=== PATIENT | male | born 1970 | race American Indian/Alaskan Native ===

== ENCOUNTER 2016-11-02 12:20 | Inpatient (IN) | payer MEDICARE ==
--- NOTE | 2016-11-02 15:59 | Admit Criteria Form ---
Admission Criteria Documentation: NEUROLOGY GRG Clinical Indications for Admission to Inpatient Care (Place ' X' for any and all applicable criteria): Hospital admission is needed for appropriate care of the patient because of ANY ONE of the following: [ ]I. New-onset or worsening altered mental status remaining after emergency or observation level care (as appropriate) (9)(10)(11) [ ]II. Severe ORTHOPAEDIC PHYSICIAN ASSISTANT infections or inflammatory conditions, including ANY ONE of the following(1)(2)(3): [ ]a) Intracranial abscess [ ]b) Spinal abscess or myelitis [ ]c) Tuberculous or other nonbacterial, nonviral ORTHOPAEDIC PHYSICIAN ASSISTANT infection(8) [ ]III. Encephalitis(1)(2)(3) [ ]IV. Status epilepticus or repetitive seizures not controlled with emergent treatment [A] (7)(8) [ ]V. Transient alteration in consciousness with high-risk etiology; examples include (12)(13): [ ]a) Cardiovascular source [ ]b) Cataplexy [ ]. Cerebral aneurysm requiring ANY ONE of the following(14): [ ]a) IV antihypertensives or vasoactive agents [ ]b) Sedation and analgesia for suspected leak [ ]c) Need for external ventricular drainage and cerebral perfusion pressure monitoring [ ]d) Emergent evaluation to determine need for surgical clipping or endovascular coiling by interventional radiology. If surgery is required ( Also use Craniotomy, Supratentorial, for Surgery of Bleeding Intracranial Aneurysm (for bleeding aneurysm) or Craniotomy, Supratentorial (for nonbleeding aneurysm) as appropriate. [ ]VII. Altered mental status that is severe or persistent(16) [ ]VIII New-onset severe neurologic findings requiring inpatient care; examples include: [ ]a) Papilledema [ ]b) Cerebral edema [ ]c) Mass effect on imaging [ ]IX. New-onset severe neurologic symptom requiring inpatient care indicated by ANY ONE of the following: [ ]a) Aphasia(15) [ ]b) Weakness (grade 3 or less) [ ]c) Paralysis (eg, hemiplegia) [ ]d) Spasticity(16) [ ]e) Ataxia(17) [ ]f) Amnesia(18) [ ]g) Involuntary movements(19) [ ]h) Vertigo [ ]i) Other severe neurologic symptom not treatable at alternative level of care (eg, observation care) [ ]X. Guillain-Gowrie syndrome(20) [ ]XI. Myasthenia gravis crisis or inpatient monitoring need as indicated by ANY ONE of the following(21): [ ]a) Inadequate airway protection [ ]b) Respiratory insufficiency requiring intubation or inpatient. monitoring [ ]c) Progressive dysphagia with failure to thrive [ ]d) Intensive treatment (eg, course of plasmapheresis) with inadequate outpatient situation to monitor patients status [X ]XII. Multiple sclerosis or other acute demyelinating disease requiring inpatient care as indicated by ANY ONE of the following (22)(23): [X ]a) Acute severe deterioration requiring inpatient treatment (eg, IV steroids, plasmapheresis, close observation) [ ]b) Acute complication requiring inpatient care (eg, sepsis, severe decubitus, aspiration) [ ]XIII. Intracranial hypertension (eg, pseudotumor cerebri) requiring inpatient care (eg, acute visual loss, inadequate oral intake) (24) [ ]XIV.Parkinson disease requiring inpatient care (Also use Optimal Recovery Care Criteria or General Recovery Criteria as appropriate) indicated by ANY ONE of the following(25): [ ]a) Infection (eg, aspiration pneumonia) not treatable at alternative level of care [ ]b) Volume depletion not responsive to emergency and observation care treatment (as appropriate) [ ]c) Life-threatening agitation or psychotic behavior not treatable on emergency, observation care, or alternative level (eg, residential) basis [ ]d) Severe medication withdrawal effects (eg, freezing, neuroleptic malignant syndrome) not responsive to emergency and observation care treatment (as appropriate) [ ]e) Other severe manifestation not treatable at alternative level of care [ ]XV.Amyotrophic lateral sclerosis with inpatient care needs as indicated by ANY ONE of the following(26): [ ]a) Acute complications requiring inpatient care (Use Optimal Recovery Care Criteria or General Recovery Criteria as appropriate); examples include: [ ]i) Aspiration pneumonia [ ]ii) Sepsis [ ]b) Dehydration or hypovolemia (not responsive to emergency and observation care treatment as appropriate) AND artificial support desired [ ]c) Inadequate airway protection AND artificial support desired [ ]d) Severe ventilatory insufficiency AND artificial support desired [ ]XVI.Severe myopathy, neuropathy, or other neuromuscular disease as indicated by ANY ONE of the following: [ ]a) New-onset severe diffuse weakness (eg, strength 3/5 or less) [ ]b) Severe dysphagia [ ]c) Dyspnea at rest or with minimal exertion (new) [ ]d) Inadequate airway protection [ ]e) Inadequate ventilation as indicated by ANY ONE of the following : [ ]i) Partial pressure of carbon dioxide greater than 44 mm Hg (5.9 kPa) (new) [ ]ii) Reduced peak expiratory flow rate (new) [ ]iii) Vital capacity less than 50% of predicted ( less than 15 mL/kg) [ ]iv) Peak inspiratory force less negative than -30 cm H20 (-2942 Pa) [ ]XVII.Complications of congenital or degenerative disease (eg, infection, seizures, dehydration, injury) not responsive to emergency and observation care treatment (as appropriate ) [C](16)(29)(30) [ ]XVIII.Suspected or confirmed nerve or muscle toxic injury, including ANY ONE of the following: [ ]a) Rhabdomyolysis(31) [ ]b) Botulism(32) [ ]c) Other severe toxin-induced sign or symptom [ ]XIX. Neurologic trauma requiring inpatient treatment (medical) indicated by ANY ONE of the following(33)(34): [ ]a) Vital signs or neurologic signs more frequently than every 4 hours [ ]b) Hyperosmolar therapy [ ]c) Respiratory monitoring [ ]d) Intracranial pressure monitoring and treatment [ ]e) Stabilization and immobilization device placement (eg, braces, body jacket) [ ]f) Intubation & mechanical ventilation for airway protection or therapeutic hyperventilation [ ]g) Other treatment or monitoring needed that requires inpatient level of care [ ]XX.Complications of neurologic devices (eg, ventricular shunt, neurostimulator) requiring ANY ONE of the following(35)(36): [ ]a) IV antibiotics with monitoring while awaiting culture results [ ]b) Monitoring for hydrocephalus [ ]XXI Vasculitis with ANY ONE of the following(4)(5): [ ]a) Altered mental status [ ]b) Psychosis [ ]c) Seizures [ ]XXII. Neurology condition and ALL of the following: [ ]a) Symptom or finding for which emergency and observation care have failed or are not considered appropriate (Use General Criteria: Observation Care as appropriate) [ ]b) Presence of ANY ONE of the following: [ ]i) A General Admission Criteria [ ]ii A Pediatric General Admission Criteria The original [facility] content created by [facility] has been revised. The portions of the content which have been revised are identified through the use of italic text or in bold, and [facility] has neither reviewed nor approved the modified material. All other unmodified content is copyright [facility] Please see references footnoted in the original [facility] edition 2016 Admission Criteria Met: Yes
--- NOTE | 2016-11-02 18:29 | History and Physical Report ---
CHIEF COMPLAINT: Weakness in both the legs. HISTORY OF PRESENT ILLNESS: A 46-year-old with history of multiple sclerosis for the past 10-15 years, now comes in for increasing weakness in both the lower extremities. Also, painful. Has difficulty walking. Feels the weakness is like 4/5 in both the lower extremities. No urinary incontinence. The patient follows with Yen Bhardwaj, neurologist. The patient is also on Gilenya 0.5 mg by mouth daily. No fever, no chills. No urinary incontinence. No bowel incontinence. PAST MEDICAL HISTORY: Significant for multiple sclerosis and low back pain. PAST SURGICAL HISTORY: None. SOCIAL HISTORY: Single, disabled. . Does not drink alcohol. Is a smoker. Is not exposed to HIV. FAMILY HISTORY: Significant for hypertension. REVIEW OF SYSTEMS: Other than lower weakness, 14-point review of systems essentially negative. Unable to walk. Walking with great help. No cough, no sore throat. CONSTITUTIONAL: No weight loss, no weight gain. HEENT: No sore throat. No postnasal drip. CARDIOVASCULAR AND RESPIRATORY: No shortness of breath. No chest pain. No palpitations. GASTROINTESTINAL: No nausea, no vomiting, no diarrhea. MUSCULOSKELETAL: Feels weak in both the lower extremities, especially in the thigh region. SKIN: No rashes. PHYSICAL EXAMINATION GENERAL: Young male, cooperative during examination. VITAL SIGNS: Blood pressure is 136/76, respirations are 16, temperature 98, pulse 70. Weight is about 145. HEENT: Unremarkable. Pupils equal and reactive. NECK: Supple. No lymphadenopathy, no thyromegaly. LUNGS: Clear to auscultation and percussion. Good air entry. CARDIOVASCULAR: S1, S2 heard. No gallop, no murmur, no rub. Apical impulse in left fifth intercostal space and midclavicular line. ABDOMEN: Soft and benign. No hepatosplenomegaly. No guarding, no rigidity. Hernial orifices are normal. EXTREMITIES: Good pedal pulses. No pedal edema. CENTRAL NERVOUS SYSTEM: Alert and oriented x 4. Nonfocal exam. The patient has weakness in both lower extremities, especially proximal muscles, 4/5 power. SKIN: Normal. LABORATORY DATA: Pending. The patient just admitted as a direct admission. ASSESSMENT AND PLAN: 1. Multiple sclerosis exacerbation. The patient will be admitted for IV Levaquin, IV Solu-Medrol 1000 mg IV q. 12. 2. Nutrition. Continue regular diet. Dietitian consult requested. 3. Lower back pain. Renick as necessary. 4. the patient on IV heparin for possible cancer in the stomach. 5. Deep venous thrombosis prophylaxis, Lovenox 40 mg subcutaneous daily. JOB# [id number] FERNANDO/NTS
[2016-11-02 18:41] LABS: Hematocrit 41.5 % (35.5-45.6); Hemoglobin 13.3 gm/dl (11.8-15.2); Mean Corpuscular HGB Conc 32 % (32-34); Mean Corpuscular Hemoglobin 27 pg (28-32); Mean Corpuscular Volume 86 fl (84-94); Platelet Count 299 K/mm3 (140-440); Red Blood Count 4.85 M/mm3 (3.65-5.03); Red Cell Distribution Width 14.6 % (13.2-15.2); White Blood Count 2.4 K/mm3 (4.5-11.0)
[2016-11-02 18:54] LABS: BUN/Creatinine Ratio 11.11; Blood Urea Nitrogen 10 mg/dL (9-20); Carbon Dioxide 26 mmol/L (22-30); Chloride 101.3 mmol/L (98-107); Glucose 102 mg/dL (75-100); Potassium 3.5 mmol/L (3.6-5.0); Sodium 141 mmol/L (137-145)
[2016-11-02 18:57] LABS: Anion Gap 17 mmol/L
--- NOTE | 2016-11-02 19:46 | Event Note ---
Date: 11/02/16 See H/p in reports MS exacerbation Low back pain
[2016-11-02] MEDS ORDERED: TRAMADOL HCL 50 MG PO SCH (20:00)
[2016-11-02 20:06] LABS: Basophils % (Manual) 0 % (0.0-1.8); Blastocytes % (Manual) 0 %
[2016-11-02 20:07] LABS: Anisocytosis Few; Diff Status Complete
[2016-11-02] MEDS: NORCO 10/325 PO SCH (21:00)
[2016-11-02] MEDS: LOVENOX SUB-Q SCH (21:00)
--- NOTE | 2016-11-02 21:12 | History and Physical Report ---
CHIEF COMPLAINT: Increasing weakness in both the lower extremities. HISTORY OF PRESENT ILLNESS: The patient is a 46-year-old -[place] male with history of multiple sclerosis, who was able to walk normally, comes into the office for increasing weakness in the both lower extremities and difficulty walking. Has to walk with a cane. Occasionally giving up and falling down. Hence, a direct admission to the hospital from exacerbation of multiple sclerosis. Weakness in both lower extremities. No weakness in the upper extremities. No diplopia. No cranial nerves symptoms. No urinary incontinence. PAST MEDICAL HISTORY: Significant for low back pain and multiple sclerosis. FAMILY HISTORY: No family health problems. SOCIAL HISTORY: Does not smoke. No alcohol, no recreational drugs. CURRENT MEDICATIONS: Gilenya 0.5 mg p.o. daily, Lyrica 75 mg p.o. b.i.d., [place] 10/325 twice a day, and Neurontin 100 mg 3 times a day. REVIEW OF SYSTEMS: CONSTITUTIONAL: No weight loss. No fever, no chills. HEENT: No sore throat. No postnasal drip. No diplopia. NECK: No neck stiffness. No neck pain. RESPIRATORY SYSTEM: No shortness of breath. CARDIOVASCULAR: No chest pain, no palpitations. GASTROINTESTINAL: No nausea, no vomiting, no diarrhea. GENITOURINARY: No dysuria. No flank pain. MUSCULOSKELETAL: Has weakness in both lower extremities. CENTRAL NERVOUS SYSTEM: Weakness in both lower extremities. SKIN: No rashes. A 14-point review of systems done otherwise negative. PHYSICAL EXAMINATION: GENERAL: Middle aged male, cooperative during examination. VITAL SIGNS: Blood pressure is 142/86, temperature is 98.7, pulse is ____, respirations are 18. HEENT: Unremarkable. Pupils equal and reactive. NECK: Supple, no lymphadenopathy, no thyromegaly. LUNGS: Clear to auscultation and percussion. Good air entry. CARDIOVASCULAR: S1, S2 heard. No gallop, no murmur, no rub. Apical impulse in left fifth intercostal space in midclavicular line. ABDOMEN: Soft and benign. No hepatosplenomegaly. No guarding, no rigidity. Hernial orifices are normal. EXTREMITIES: 3+ power in the both lower extremities. Reflexes are decreased. SKIN: Normal. GAIT: Able to walk with the help of a cane. LABORATORY DATA: Significant for white count of 2400, H and H of 13.3 and 41.5, platelet count of 299,000. Glucose is 102. Sodium is 141, potassium is 3.5, chloride is 101, bicarbonate is 26, BUN and creatinine is 10 and 0.9, calcium is 9.0, glucose is 102. ASSESSMENT AND PLAN: 1. Multiple sclerosis exacerbation. The patient started on IV Solu-Medrol 1 gram IV piggyback q.24 for 5 days. Neurology consult requested. Physical therapy consult requested. Also, continue Gilenya 0.5 mg daily. 2. Muscle spasms. Continue Zanaflex 4 mg twice a day. Also, tramadol 50 mg once a day. 3. Low back pain. Continue [place] 10/325 twice a day. 4. Deep venous thrombosis prophylaxis, Lovenox 40 mg subcutaneous daily. JOB# [id number] FERNANDO/CHAR
[2016-11-02] MEDS: ZANAFLEX PO SCH (21:54)
[2016-11-02] MEDS ORDERED: TIZANIDINE 4 MG PO SCH (22:00)
[2016-11-02] MEDS ORDERED: APAP PO SCH (22:00)
[2016-11-02] MEDS ORDERED: HYDROCODONE PO SCH (22:00)
[2016-11-02] MEDS: ULTRAM PO SCH (22:01)
[2016-11-03 07:33] LABS: Bilirubin,Urine NEG (Negative); Blood,Urine NEG (Negative); Ketones,Urine NEG (Negative); Leukocyte Esterase,Urine NEG (Negative); Mucus,Urine FEW /HPF; Nitrite,Urine NEG (Negative); Protein,Urine <15 mg/dL mg/dL (Negative); RBC,Urine < 1.0 /HPF (0.0-6.0); Urobilinogen,Urine < 2.0 mg/dL (<2.0); WBC,Urine < 1.0 /HPF (0.0-6.0)
[2016-11-03] MEDS ORDERED: ULTRAM PO SCH (10:00)
[2016-11-03] MEDS: NORCO 10/325 PO SCH ×2 (10:49→22:34)
[2016-11-03] MEDS: ZANAFLEX PO SCH ×2 (10:49→22:34)
[2016-11-03] MEDS: ULTRAM PO SCH (10:49)
[2016-11-03] MEDS: GILENYA 0.5 MG PO SCH (13:17)
[2016-11-03] MEDS: LOVENOX SUB-Q SCH (22:35)
--- NOTE | 2016-11-03 23:34 | Progress Note ---
Assessment and Plan - Patient Problems (1) Multiple sclerosis exacerbation Current Visit: Yes Status: Acute Plan to address problem: Steroid therapy, supportive care, (2) Nicotine dependence Current Visit: Yes Status: Acute Qualifiers: Nicotine product type: N Substance use status: S Plan to address problem: Pt counseled, (3) DVT prophylaxis Current Visit: Yes Status: Acute History Interval history: Pt resting in bed, No reported nursing events. Pt denies pain, fever, chills, NVD. Hospitalist Physical - Constitutional Vitals: Temp Pulse Resp BP Pulse Ox 98.3 F 76 18 143/66 98 11/03/16 15:12 11/03/16 15:12 11/03/16 15:12 11/03/16 15:12 11/03/16 08:00 General appearance: Present: no acute distress - EENT Eyes: Present: PERRL ENT: hearing intact - Neck Neck: Present: supple - Respiratory Respiratory: bilateral: CTA - Cardiovascular Rhythm: regular Heart Sounds: Present: S1 & S2 Peripheral Pulses: within normal limits - Abdominal General gastrointestinal: soft, non-tender, non-distended - Integumentary Integumentary: Present: clear, dry - Psychiatric Psychiatric: appropriate mood/affect, cooperative Results - Labs CBC & Chem 7: 11/02/16 18:20 11/02/16 18:20 Labs: Laboratory Last Values WBC 2.4 K/mm3 (4.5-11.0) L 11/02/16 18:20 RBC 4.85 M/mm3 (3.65-5.03) 11/02/16 18:20 Hgb 13.3 gm/dl (11.8-15.2) 11/02/16 18:20 Hct 41.5 % (35.5-45.6) 11/02/16 18:20 MCV 86 fl (84-94) 11/02/16 18:20 MCH 27 pg (28-32) L 11/02/16 18:20 MCHC 32 % (32-34) 11/02/16 18:20 RDW 14.6 % (13.2-15.2) 11/02/16 18:20 Plt Count 299 K/mm3 (140-440) 11/02/16 18:20 Mineral % (Auto) Director Of Vocational Guidance 11/02/16 18:20 Add Manual Diff Complete 11/02/16 18:20 Total Counted 100 11/02/16 18:20 Seg Neuts % (Manual) 61.0 % (40.0-70.0) 11/02/16 18:20 Band Neutrophils % 0 % 11/02/16 18:20 Lymphocytes % (Manual) 16.0 % (13.4-35.0) 11/02/16 18:20 Reactive Lymphs % (Man) 0 % 11/02/16 18:20 Monocytes % (Manual) 17.0 % (0.0-7.3) H 11/02/16 18:20 Eosinophils % (Manual) 6.0 % (0.0-4.3) H 11/02/16 18:20 Basophils % (Manual) 0 % (0.0-1.8) 11/02/16 18:20 Metamyelocytes % 0 % 11/02/16 18:20 Myelocytes % 0 % 11/02/16 18:20 Promyelocytes % 0 % 11/02/16 18:20 Blast Cells % 0 % 11/02/16 18:20 Nucleated RBC % Not Reportable 11/02/16 18:20 Seg Neutrophils # Man 1.5 K/mm3 (1.8-7.7) L 11/02/16 18:20 Band Neutrophils # 0.0 K/mm3 11/02/16 18:20 Lymphocytes # (Manual) 0.4 K/mm3 (1.2-5.4) L 11/02/16 18:20 Abs React Lymphs (Man) 0.0 K/mm3 11/02/16 18:20 Monocytes # (Manual) 0.4 K/mm3 (0.0-0.8) 11/02/16 18:20 Eosinophils # (Manual) 0.1 K/mm3 (0.0-0.4) 11/02/16 18:20 Basophils # (Manual) 0.0 K/mm3 (0.0-0.1) 11/02/16 18:20 Metamyelocytes # 0.0 K/mm3 11/02/16 18:20 Myelocytes # 0.0 K/mm3 11/02/16 18:20 Promyelocytes # 0.0 K/mm3 11/02/16 18:20 Blast Cells # 0.0 K/mm3 11/02/16 18:20 WBC Morphology Not Reportable 11/02/16 18:20 Hypersegmented Neuts Not Reportable 11/02/16 18:20 Hyposegmented Neuts Not Reportable 11/02/16 18:20 Hypogranular Neuts Not Reportable 11/02/16 18:20 Smudge Cells Not Reportable 11/02/16 18:20 Toxic Granulation Not Reportable 11/02/16 18:20 Toxic Vacuolation Not Reportable 11/02/16 18:20 Dohle Bodies Not Reportable 11/02/16 18:20 Pelger-Huet Anomaly Not Reportable 11/02/16 18:20 Deandre Rods Not Reportable 11/02/16 18:20 Platelet Estimate Appears normal 11/02/16 18:20 Clumped Platelets Not Reportable 11/02/16 18:20 Plt Clumps, EDTA Not Reportable 11/02/16 18:20 Large Platelets Not Reportable 11/02/16 18:20 Giant Platelets Not Reportable 11/02/16 18:20 Platelet Satelliting Not Reportable 11/02/16 18:20 Plt Morphology Comment Not Reportable 11/02/16 18:20 RBC Morphology Not Reportable 11/02/16 18:20 Dimorphic RBCs Not Reportable 11/02/16 18:20 Polychromasia Not Reportable 11/02/16 18:20 Hypochromasia Not Reportable 11/02/16 18:20 Poikilocytosis Not Reportable 11/02/16 18:20 Anisocytosis Few 11/02/16 18:20 Microcytosis Not Reportable 11/02/16 18:20 Macrocytosis Not Reportable 11/02/16 18:20 Spherocytes Not Reportable 11/02/16 18:20 Pappenheimer Bodies Not Reportable 11/02/16 18:20 Sickle Cells Not Reportable 11/02/16 18:20 Target Cells Not Reportable 11/02/16 18:20 Tear Drop Cells Not Reportable 11/02/16 18:20 Ovalocytes Not Reportable 11/02/16 18:20 Helmet Cells Not Reportable 11/02/16 18:20 Roman-[place] Bodies Not Reportable 11/02/16 18:20 [place] Rings Not Reportable 11/02/16 18:20 [place] Cells Not Reportable 11/02/16 18:20 Bite Cells Not Reportable 11/02/16 18:20 Crenated Cell Not Reportable 11/02/16 18:20 Elliptocytes Not Reportable 11/02/16 18:20 Acanthocytes (Spur) Not Reportable 11/02/16 18:20 Rouleaux Not Reportable 11/02/16 18:20 Hemoglobin C Crystals Not Reportable 11/02/16 18:20 Schistocytes Not Reportable 11/02/16 18:20 Malaria parasites Not Reportable 11/02/16 18:20 Thomas Bodies Not Reportable 11/02/16 18:20 Hem Pathologist Commnt No 11/02/16 18:20 Sodium 141 mmol/L (137-145) 11/02/16 18:20 Potassium 3.5 mmol/L (3.6-5.0) L 11/02/16 18:20 Chloride 101.3 mmol/L (98-107) 11/02/16 18:20 Carbon Dioxide 26 mmol/L (22-30) 11/02/16 18:20 Anion Gap 17 mmol/L 11/02/16 18:20 BUN 10 mg/dL (9-20) 11/02/16 18:20 Creatinine 0.9 mg/dL (0.8-1.5) 11/02/16 18:20 Estimated GFR > 60 ml/min 11/02/16 18:20 BUN/Creatinine Ratio 11.11 % 11/02/16 18:20 Glucose 102 mg/dL (75-100) H 11/02/16 18:20 Calcium 9.0 mg/dL (8.4-10.2) 11/02/16 18:20 Urine Color Yellow (Yellow) 11/02/16 06:40 Urine Turbidity Clear (Clear) 11/02/16 06:40 Urine pH 6.0 (5.0-7.0) 11/02/16 06:40 Ur Specific [place] 1.018 (1.003-1.030) 11/02/16 06:40 Urine Protein <15 mg/dl mg/dL (Negative) 11/02/16 06:40 Urine Glucose (UA) Neg mg/dL (Negative) 11/02/16 06:40 Urine Ketones Neg mg/dL (Negative) 11/02/16 06:40 Urine Blood Neg (Negative) 11/02/16 06:40 Urine Nitrite Neg (Negative) 11/02/16 06:40 Urine Bilirubin Neg (Negative) 11/02/16 06:40 Urine Urobilinogen < 2.0 mg/dL (<2.0) 11/02/16 06:40 Ur Leukocyte Esterase Neg (Negative) 11/02/16 06:40 Urine WBC (Auto) < 1.0 /HPF (0.0-6.0) 11/02/16 06:40 Urine RBC (Auto) < 1.0 /HPF (0.0-6.0) 11/02/16 06:40 U Epithel Cells (Auto) < 1.0 /HPF (0-13.0) 11/02/16 06:40 Urine Mucus Few /HPF 11/02/16 06:40
[2016-11-04] MEDS: ZANAFLEX PO SCH ×2 (10:46→22:40)
[2016-11-04] MEDS: NORCO 10/325 PO SCH (10:47)
[2016-11-04] MEDS: ULTRAM PO SCH (10:47)
[2016-11-04] MEDS: GILENYA 0.5 MG PO SCH (10:48)
[2016-11-04] MEDS: PROTONIX PO SCH (13:55)
--- NOTE | 2016-11-04 19:35 | Progress Note ---
Assessment and Plan - Patient Problems (1) Multiple sclerosis exacerbation Current Visit: Yes Status: Acute Plan to address problem: Steroid therapy, supportive care, (2) Nicotine dependence Current Visit: Yes Status: Acute Qualifiers: Nicotine product type: N Substance use status: S Plan to address problem: Pt counseled, (3) DVT prophylaxis Current Visit: Yes Status: Acute History Interval history: Pt resting in bed, No reported nursing events. Pt denies pain, fever, chills, NVD. Pt acknowledges feeling weak. Hospitalist Physical - Constitutional Vitals: Temp Pulse Resp BP Pulse Ox 98.3 F 70 18 115/72 97 11/04/16 15:49 11/04/16 15:49 11/04/16 15:49 11/04/16 15:49 11/04/16 15:49 General appearance: Present: no acute distress - EENT Eyes: Present: PERRL ENT: hearing intact - Neck Neck: Present: supple - Respiratory Respiratory effort: normal Respiratory: bilateral: CTA - Cardiovascular Rhythm: regular Heart Sounds: Present: S1 & S2 - Extremities Extremities: no ischemia Peripheral Pulses: within normal limits - Abdominal General gastrointestinal: soft, non-tender, non-distended - Integumentary Integumentary: Present: clear, warm, dry - Psychiatric Psychiatric: appropriate mood/affect, cooperative - Neurologic Neurologic: CNII-XII intact Results - Labs CBC & Chem 7: 11/02/16 18:20 11/02/16 18:20 Labs: Laboratory Last Values WBC 2.4 K/mm3 (4.5-11.0) L 11/02/16 18:20 RBC 4.85 M/mm3 (3.65-5.03) 11/02/16 18:20 Hgb 13.3 gm/dl (11.8-15.2) 11/02/16 18:20 Hct 41.5 % (35.5-45.6) 11/02/16 18:20 MCV 86 fl (84-94) 11/02/16 18:20 MCH 27 pg (28-32) L 11/02/16 18:20 MCHC 32 % (32-34) 11/02/16 18:20 RDW 14.6 % (13.2-15.2) 11/02/16 18:20 Plt Count 299 K/mm3 (140-440) 11/02/16 18:20 [place] % (Auto) Impregnator And Drier 11/02/16 18:20 Add Manual Diff Complete 11/02/16 18:20 Total Counted 100 11/02/16 18:20 Seg Neuts % (Manual) 61.0 % (40.0-70.0) 11/02/16 18:20 Band Neutrophils % 0 % 11/02/16 18:20 Lymphocytes % (Manual) 16.0 % (13.4-35.0) 11/02/16 18:20 Reactive Lymphs % (Man) 0 % 11/02/16 18:20 Monocytes % (Manual) 17.0 % (0.0-7.3) H 11/02/16 18:20 Eosinophils % (Manual) 6.0 % (0.0-4.3) H 11/02/16 18:20 Basophils % (Manual) 0 % (0.0-1.8) 11/02/16 18:20 Metamyelocytes % 0 % 11/02/16 18:20 Myelocytes % 0 % 11/02/16 18:20 Promyelocytes % 0 % 11/02/16 18:20 Blast Cells % 0 % 11/02/16 18:20 Nucleated RBC % Not Reportable 11/02/16 18:20 Seg Neutrophils # Man 1.5 K/mm3 (1.8-7.7) L 11/02/16 18:20 Band Neutrophils # 0.0 K/mm3 11/02/16 18:20 Lymphocytes # (Manual) 0.4 K/mm3 (1.2-5.4) L 11/02/16 18:20 Abs React Lymphs (Man) 0.0 K/mm3 11/02/16 18:20 Monocytes # (Manual) 0.4 K/mm3 (0.0-0.8) 11/02/16 18:20 Eosinophils # (Manual) 0.1 K/mm3 (0.0-0.4) 11/02/16 18:20 Basophils # (Manual) 0.0 K/mm3 (0.0-0.1) 11/02/16 18:20 Metamyelocytes # 0.0 K/mm3 11/02/16 18:20 Myelocytes # 0.0 K/mm3 11/02/16 18:20 Promyelocytes # 0.0 K/mm3 11/02/16 18:20 Blast Cells # 0.0 K/mm3 11/02/16 18:20 WBC Morphology Not Reportable 11/02/16 18:20 Hypersegmented Neuts Not Reportable 11/02/16 18:20 Hyposegmented Neuts Not Reportable 11/02/16 18:20 Hypogranular Neuts Not Reportable 11/02/16 18:20 Smudge Cells Not Reportable 11/02/16 18:20 Toxic Granulation Not Reportable 11/02/16 18:20 Toxic Vacuolation Not Reportable 11/02/16 18:20 Dohle Bodies Not Reportable 11/02/16 18:20 Pelger-Huet Anomaly Not Reportable 11/02/16 18:20 Deandre Rods Not Reportable 11/02/16 18:20 Platelet Estimate Appears normal 11/02/16 18:20 Clumped Platelets Not Reportable 11/02/16 18:20 Plt Clumps, EDTA Not Reportable 11/02/16 18:20 Large Platelets Not Reportable 11/02/16 18:20 Giant Platelets Not Reportable 11/02/16 18:20 Platelet Satelliting Not Reportable 11/02/16 18:20 Plt Morphology Comment Not Reportable 11/02/16 18:20 RBC Morphology Not Reportable 11/02/16 18:20 Dimorphic RBCs Not Reportable 11/02/16 18:20 Polychromasia Not Reportable 11/02/16 18:20 Hypochromasia Not Reportable 11/02/16 18:20 Poikilocytosis Not Reportable 11/02/16 18:20 Anisocytosis Few 11/02/16 18:20 Microcytosis Not Reportable 11/02/16 18:20 Macrocytosis Not Reportable 11/02/16 18:20 Spherocytes Not Reportable 11/02/16 18:20 Pappenheimer Bodies Not Reportable 11/02/16 18:20 Sickle Cells Not Reportable 11/02/16 18:20 Target Cells Not Reportable 11/02/16 18:20 Tear Drop Cells Not Reportable 11/02/16 18:20 Ovalocytes Not Reportable 11/02/16 18:20 Helmet Cells Not Reportable 11/02/16 18:20 Roman-Flint Bodies Not Reportable 11/02/16 18:20 Dickson Rings Not Reportable 11/02/16 18:20 [place] Cells Not Reportable 11/02/16 18:20 Bite Cells Not Reportable 11/02/16 18:20 Crenated Cell Not Reportable 11/02/16 18:20 Elliptocytes Not Reportable 11/02/16 18:20 Acanthocytes (Spur) Not Reportable 11/02/16 18:20 Rouleaux Not Reportable 11/02/16 18:20 Hemoglobin C Crystals Not Reportable 11/02/16 18:20 Schistocytes Not Reportable 11/02/16 18:20 Malaria parasites Not Reportable 11/02/16 18:20 Thomas Bodies Not Reportable 11/02/16 18:20 Hem Pathologist Commnt No 11/02/16 18:20 Sodium 141 mmol/L (137-145) 11/02/16 18:20 Potassium 3.5 mmol/L (3.6-5.0) L 11/02/16 18:20 Chloride 101.3 mmol/L (98-107) 11/02/16 18:20 Carbon Dioxide 26 mmol/L (22-30) 11/02/16 18:20 Anion Gap 17 mmol/L 11/02/16 18:20 BUN 10 mg/dL (9-20) 11/02/16 18:20 Creatinine 0.9 mg/dL (0.8-1.5) 11/02/16 18:20 Estimated GFR > 60 ml/min 11/02/16 18:20 BUN/Creatinine Ratio 11.11 % 11/02/16 18:20 Glucose 102 mg/dL (75-100) H 11/02/16 18:20 Calcium 9.0 mg/dL (8.4-10.2) 11/02/16 18:20 Urine Color Yellow (Yellow) 11/02/16 06:40 Urine Turbidity Clear (Clear) 11/02/16 06:40 Urine pH 6.0 (5.0-7.0) 11/02/16 06:40 Ur Specific [place] 1.018 (1.003-1.030) 11/02/16 06:40 Urine Protein <15 mg/dl mg/dL (Negative) 11/02/16 06:40 Urine Glucose (UA) Neg mg/dL (Negative) 11/02/16 06:40 Urine Ketones Neg mg/dL (Negative) 11/02/16 06:40 Urine Blood Neg (Negative) 11/02/16 06:40 Urine Nitrite Neg (Negative) 11/02/16 06:40 Urine Bilirubin Neg (Negative) 11/02/16 06:40 Urine Urobilinogen < 2.0 mg/dL (<2.0) 11/02/16 06:40 Ur Leukocyte Esterase Neg (Negative) 11/02/16 06:40 Urine WBC (Auto) < 1.0 /HPF (0.0-6.0) 11/02/16 06:40 Urine RBC (Auto) < 1.0 /HPF (0.0-6.0) 11/02/16 06:40 U Epithel Cells (Auto) < 1.0 /HPF (0-13.0) 11/02/16 06:40 Urine Mucus Few /HPF 11/02/16 06:40
[2016-11-04] MEDS ORDERED: NORCO 10/325 PO ONE (20:25)
[2016-11-04] MEDS: LOVENOX SUB-Q SCH (22:40)
[2016-11-05] MEDS: NORCO 10/325 PO SCH ×2 (00:10→11:38)
[2016-11-05] MEDS: GILENYA 0.5 MG PO SCH (11:37)
[2016-11-05] MEDS: ULTRAM PO SCH (11:39)
[2016-11-05] MEDS: PROTONIX PO SCH (11:39)
[2016-11-05] MEDS: ZANAFLEX PO SCH (11:40)
[2016-11-05 21:25] VITALS: BP 162/88
== END 2016-11-05 21:20 | disposition home or self-care (01) | DRG 60 ==
LOC: 3A 12:20
PROVIDERS: ADMIT Internal Medicine; ATTEND Internal Medicine
DX: G35 Multiple sclerosis (principal); F17.210 Nicotine dependence, cigarettes, uncomplicated; Z71.6 Tobacco abuse counseling
CPT/HCPCS: 36415; 80048; 81001; 85007; 85025; J1650; J2930; J7050